=== PATIENT | male | born 1940 | race Caucasian/White ===

== ENCOUNTER 2019-04-19 09:51 | Outpatient (CLI) | payer MEDICARE, OTHER ==
[~2019-04-19 09:51] MED LIST: AMLO10TA8 PO; AMLO5TAB4 PO; ASPI-496 PO; ASPI-515 PO; AZIT500T5 PO; BENA20TA54 PO; BISA10SU65 PR; CLOP75TA PO; CLOP75TA52 PO; DOXA4TAB3 PO; EZET1TAB30 PO; HYDR-3240 PO; HYDR25TA6 PO; IRON PO; METO25TA2 PO; METO25TA91 PO; OXYC-302 PO; PRED10TA PO; RIVA15TA PO; TAMS-11 PO
== END 2019-04-19 23:59 | disposition home or self-care (01) ==
LOC: CFH 09:51
PROVIDERS: ATTEND Physician Assistant
DX: C64.9 Malignant neoplasm of unspecified kidney, except renal pelvis (principal)
CPT/HCPCS: 71046; 76770

== ENCOUNTER 2019-11-08 08:53 | Outpatient (CLI) | payer MEDICARE, OTHER ==
[~2019-11-08] VITALS: Ht 167.6 cm; Wt 88.6 kg
[~2019-11-08 08:53] MED LIST changes: +ALLO300T PO; +AMLO5TAB10 PO; +AZIT500T10 PO; -AZIT500T5 PO; +EZET10TA70 PO; +FERR-51 PO; +METO-93 PO; +POTA10CA PO; +RIVA10TA2 PO; +SIMV20TA3 PO
[2019-11-08] MEDS ORDERED: LACTATED RINGERS 1,000 ML IV SCH (09:32)
[2019-11-08 09:46] VITALS: BP 135/65
== END 2019-11-08 10:00 | disposition home or self-care (01) ==
LOC: OUT 08:53 → EDSTATUS 11:15
PROVIDERS: ATTEND Internal Medicine Geriatric Medicine
DX: D17.9 Benign lipomatous neoplasm, unspecified (principal); Z53.8 Procedure and treatment not carried out for other reasons
CPT/HCPCS: 93005